=== PATIENT | female | born 1975 | race Two or more races ===

== ENCOUNTER 2017-07-31 00:27 | Day surgery (SDC) | payer BC ==
[2017-07-29 13:59] VITALS: BMI 23.8
[2017-07-30 14:05] LABS: HEMOGLOBIN 12.3 g/dL (12.0-16.0); MEAN CELL VOLUME 88.2 fl (81.0-99.0); MEAN CORPUSCULAR HEMOGLOBIN 29.5 pg (27.0-31.0); MEAN CORPUSCULAR HGB CONC 33.4 g/dL (33.0-37.0); RBC 4.18 Mil/uL (3.80-5.20); WHITE BLOOD COUNT 5.9 K/uL (4.8-10.8)
[2017-07-30] MEDS: HYDROmorphone 0.5 mg/0.5 ml ISec IVP PRN ×2 (19:50→20:15)
[~2017-07-31 00:27] MED LIST: Dexamethasone 4 mg/1 ml ONE; Esmolol 100 mg/10ml Inj IV ONE; Lactated Ringer's 1,000 ML IV ONE; Midazolam 2 MG/2 ML VIAL ONE; Oxycodone/Acetaminophen 5/325 mg Tab PO PRN; Propofol 10 mg/ml Inj (20 ML) ONE; Rocuronium 10 mg/ml (5 ml) ONE; Succinylcholine 200 mg/10 ml Inj IV ONE
[2017-07-31] MEDS ORDERED: Alum-Mag Hydrox-Simethicone Susp (30 mL) PO ONE ×2 (01:17→11:15)
[2017-07-31 07:15] VITALS: O2SAT 98
[2017-07-31] MEDS ORDERED: Oxycodone/Acetaminophen 5/325 mg Tab PO PRN (08:15)
[2017-07-31 08:20] VITALS: BP 108/71; PULSE 84; RESP 18; TEMP 97.8
--- NOTE | 2017-08-04 08:48 | PCM.OP ---
Operative Report - Operative Report Date of Surgery/Procedure: 07/30/17 Time of Surgery/Procedure: 08:00 Surgeon: Dr. Carlos Blake Pig Sticker: Dr. Franc Nowak Anesthesia/Sedation: general/Dr. 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 2- Appendectomy. Brief History: This is a 42 year old woman already brought to the operating room by Dr. Nowak when he requested an intraoperative general surgery consultation for the above mentioned lesions. Description of the Procedure: Dr. Nowak had already initiated the robotic procedure (separate dictation Dr. Nowak). After taking control of the robotic console the lesion in the erectum was inspected. Using blunt and sharp dissection with the aid of electrocautery the lesion was incised circumferentially and completely excised en-bloc with particular attention to hemostasis. The rectal lesion was marked and sent to pathology as a separate specimen. Our attnetion turned to the veriform appendix and with elelctrocautery the appendiceal mesentery was dessicated with particular attention to the appendiceal artery. With the appendix dissected to the base three 3-0 PDS endoloopes were placed appropriately. The appendix was transected and the remnant mucosa was gnetly dessicated. The specimen was marked and sent to pathology separately. Hemostasis was deemed adequate and the operation was then turned over to Dr. Nowak (separate dictation Dr. Nowak). Estimated Blood Loss: 5 cc Complications: none Specimen: [id number] endometriosis. 2-appendix Discharge & Condition: stable
--- NOTE | 2017-08-13 14:26 | OP ---
PROCEDURE DATE: 07/31/2017 PREOPERATIVE DIAGNOSES: Pelvic pain, dysmenorrhea, dyspareunia, and bladder pain. POSTOPERATIVE DIAGNOSES: Pelvic pain, dysmenorrhea, dyspareunia, and bladder pain plus pelvic endometriosis and possibly interstitial cystitis. PROCEDURES PERFORMED: Cystoscopy with bilateral ureteral catheterization and injection of IC Green dye, robotic laparoscopy, excision of endometriosis, bilateral ureterolysis, hysteroscopy and D and C, also incidental appendectomy to be dictated separately by general surgery. SURGEON: Franc Nowak MD UNEMPLOYMENT EXAMINER: Carlos Blake MD COMPLICATIONS: None. ESTIMATED BLOOD LOSS: Minimal. SPECIMENS: Appendix, anterior bladder sample, perirectal endometriosis, periureteral endometriosis, right and left ovarian fossa. INDICATIONS FOR THE PROCEDURE: The patient is a 42-year-old female with a history of dysmenorrhea and dyspareunia. A clinical examination revealed focal tenderness suggestive of endometriosis. Prior to the surgery, the patient was counseled with regards to the risks and benefits of the procedure and associated procedures and prior to the surgery, she reaffirmed a desire to move forward and signed the consent. DESCRIPTION OF PROCEDURE: After adequate anesthesia was obtained, the patient was placed in a dorsal lithotomy position. She was prepped and draped. The surgeon was gowned and gloved. Please note that the patient was placed on extensive padding in all areas of pressure and her hips were left in affixed position without any hyperflexion and hyperextension of her hips. At this point, after a time-out according to the hospital policy, a cystoscope was inserted into the bladder. Under direct visualization, the bladder was visualized. There appears some small amount of aberrant hemorrhagic vessels in the bladder, suggestive of very malform of interstitial cystitis, mostly this was in the area of the trigone. Otherwise, the bladder appeared to be normal in size. The both ureters appeared to be in the normal anatomical position. The left ureter was catheterized using a 5-Ukrainian open ended catheter all the way to the distal ureter and 5 mL of IC-Green was injected. Similarly, on the right hand side, again the ureter was catheterized all the way to the distal ureter and 5 mL of IC-Green was also injected. At this point, a Mueller was placed into bladder. Attention was in the vaginal area where a speculum was placed into the vagina. The anterior lip of the cervix was grasped and the gently dilated. A hysteroscope was inserted into the uterine cavity. The uterine cavity was noted to be normal in size. There appears to be some erythematous changes on the that visually were suggestive of endometritis. A gentle D and C was performed and tissue was obtained and sent to Pathology for testing. At this point, attention was in the abdomen where an open laparoscopy was performed by making an incision on the skin in the infraumbilical area and entering the peritoneum in a blunt fashion. A cannula was then placed. Under direct visualization, the right upper quadrant, left upper quadrant and left mid quadrant trocars were inserted. The abdomen was visualized, delivered and diaphragm appeared to be free of disease. There were some areas in the appendix that appeared to be normal and then incidental appendectomy was performed by Dr. Blake. The pelvis revealed evidence of endometriosis in the following areas, anterior bladder, left pelvis side wall, left posterior cervix, right perirectal area, and right periureteral area. At this point, attention was first on the anterior bladder where an area of endometriosis on the bladder was identified on the serosa. The serosa was incised and then the area was progressively dissected out with extreme care not to enter the muscularis of the bladder, which was left intact. This sample was sent to pathology. At this point, attention was in the pelvic area where the ovary was elevated and the retroperitoneal area was entered, utilizing cautery and scissors. The ureter was identified, utilizing fluorescent technology, which was progressively dissected and lateralized and the peritoneum medialized containing endometriosis. The full area was dissected and sent to pathology. In addition, an area in the ovarian fossa was also excised, identified the uterine vessels and then progressively dissecting and the area containing endometriosis, which was also dissected. Additionally, on the right pelvic side wall after elevating the ovary, an area of endometriosis was identified in the periureteral area. The ureter was identified utilizing fluorescent. The peritoneum was entered in a sharp fashion and a full dissection was performed, lateralizing the ureter, medializing the peritoneum, excising endometriosis. Again in the right uterosacral area, an additional area was identified and it was excised with extreme care to preserve vessels and nerves. At this point, an area in the right perirectal area was identified. It was grasped and dissected with great care not to injure the rectum. At this point, it was checked for hemostasis and appeared to be excellent. The da Nazario robot was undocked, the instruments were removed and the abdomen was desufflated. The incisions were closed with 0 PDS for the fascia and 4-0 Monocryl for the skin. At the end of the procedure, all tapes and instruments counts were correct. The patient tolerated the procedure well and was taken to the recovery room in excellent condition. Franc Nowak MD
== END 2017-07-31 12:30 | disposition home or self-care (01) ==
LOC: H.MEDSURG1 00:27 → H.OPSURG 00:27
PROVIDERS: ATTEND Obstetrics & Gynecology Reproductive Endocrinology
DX: R10.2 Pelvic and perineal pain (principal); N80.1 Endometriosis of ovary; N94.6 Dysmenorrhea, unspecified; N80.8 Other endometriosis
CPT/HCPCS: 36415; 44970; 58578; 58662; 85027; 86850; 86900; 88304; 88305; C1729; J0330; J0690; J1100; J1170; J1885; J2001; J2250; J2405; J2704; J3010; J7030; J7040; J7120